=== PATIENT | male | born 1960 | race Caucasian/White ===

== ENCOUNTER 2017-09-03 13:34 | Emergency (ER) | payer SELFPAY ==
[~2017-09-03] VITALS: Ht 172.7 cm; Wt 90.5 kg
[2017-09-03 16:34] VITALS: BP 145/91
[2017-09-03] MEDS ORDERED: 0.9% SODIUM CHLORIDE 5 ML NEB SOLUTION NEB ONE (17:15)
== END 2017-09-03 17:35 | disposition home or self-care (01) ==
LOC: EMS 13:41
DX: J06.9 Acute upper respiratory infection, unspecified (principal); F17.210 Nicotine dependence, cigarettes, uncomplicated; Z88.5 Allergy status to narcotic agent
CPT/HCPCS: 71046; 99284

== ENCOUNTER 2018-12-30 10:46 | Emergency (ER) | payer MEDICAID ==
[~2018-12-30] VITALS: Ht 172.7 cm; Wt 95.5 kg
[~2018-12-30 10:46] MED LIST: LEVO250 PO; PERCT10 PO
[2018-12-30] MEDS ORDERED: TRAM50TA4 PO (10:53)
[2018-12-30 13:37] VITALS: BP 113/67
== END 2018-12-30 13:37 | disposition home or self-care (01) ==
LOC: EMS 10:48
DX: M79.642 Pain in left hand (principal); F17.210 Nicotine dependence, cigarettes, uncomplicated; Z88.5 Allergy status to narcotic agent

== ENCOUNTER 2019-01-14 05:27 | Emergency (ER) | payer MEDICAID ==
[~2019-01-14] VITALS: Ht 165.1 cm; Wt 95.5 kg
[~2019-01-14 05:27] MED LIST changes: -LEVO250 PO; -PERCT10 PO; +TRAM50TA4 PO
[2019-01-14 07:23] LABS: BASOPHILS % (AUTO) 0.6 % (0.0-2.0); EOSINOPHILS % (AUTO) 3.3 % (1.0-6.0); HEMATOCRIT 42.4 % (41-53); HEMOGLOBIN 14.3 g/dL (13.5-17.5); LYMPHOCYTES # (AUTO) 3.3 K/uL (1.0-4.8); LYMPHOCYTES % (AUTO) 42.9 % (22.0-44.0); MEAN CORPUSCULAR HEMOGLOBIN 30.2 pg (26.0-34.0); MEAN CORPUSCULAR HGB CONC 33.7 G/dL (31.0-37.0); MEAN CORPUSCULAR VOLUME 90 fL (80-100); MONOCYTES # (AUTO) 0.5 K/uL (0.1-1.0); MONOCYTES % (AUTO) 6.7 % (2.0-9.0); NEUTROPHILS # (AUTO) 3.6 K/uL (1.8-7.7); NEUTROPHILS % (AUTO) 46.5 % (40.0-70.0); PLATELET COUNT (AUTO) 240 K/uL (150-450); RED BLOOD CELL COUNT(AUTO) 4.73 MIL/uL (4.50-5.90); RED CELL DISTRIBUTION WIDTH 12.8 % (11.5-14.5)
[2019-01-14 07:33] LABS: ANION GAP 8 mmol/L (8-16); CALCIUM, TOTAL 8.9 mg/dL (8.8-10.5); CARBON DIOXIDE 28 mmol/L (22-29); CHLORIDE 103 mmol/L (98-107); CREATININE 1.01 mg/dL (0.60-1.30); GLOMERULAR FILTR. RATE CALC > 60 mL/min (>60); GLUCOSE,RANDOM 177 mg/dL (70-110); POTASSIUM 3.4 mmol/L (3.5-5.1); SODIUM SERUM 139 mmol/L (136-145); UREA NITROGEN, BLOOD 13 mg/dL (7-18)
[2019-01-14 07:38] LABS: ALANINE AMINOTRANSFERASE 48 U/L (12-78); ALBUMIN 3.5 g/dL (3.4-5.0); ALKALINE PHOSPHATASE 80 U/L (46-116); ASPARTATE AMINOTRANSFERASE 24 U/L (15-37); BILIRUBIN,TOTAL 0.3 mg/dL (0.1-1.0); TOTAL PROTEIN, SERUM 7.8 g/dL (6.4-8.2); URIC ACID 5.8 mg/dL (2.6-7.2)
[2019-01-14] MEDS ORDERED: IBUPROFEN 600 MG TABLET PO ONE (08:30)
[2019-01-14] MEDS ORDERED: POTASSIUM CHLORIDE 20 MEQ ER TABLET PO ONE (08:30)
[2019-01-14 08:39] VITALS: BP 128/84
== END 2019-01-14 09:02 | disposition home or self-care (01) ==
LOC: EMS 05:30
DX: M79.642 Pain in left hand (principal); F15.90 Other stimulant use, unspecified, uncomplicated; F12.90 Cannabis use, unspecified, uncomplicated; Z87.891 Personal history of nicotine dependence
CPT/HCPCS: 84550; 85379